=== PATIENT | male | born 1990 | race Asian ===

== ENCOUNTER 2018-07-06 08:22 | Emergency (ER) | payer OTHER ==
[~2018-07-06] VITALS: Ht 170.2 cm; Wt 75.0 kg
[2018-07-06] MEDS ORDERED: HYDROCODONE/ACETAMINOPHEN 5/325MG TABLET PO PRN (09:15)
[2018-07-06] MEDS ORDERED: ONDANSETRON HCL 4MG TABLET PO ONE (09:15)
[2018-07-06 12:52] VITALS: BP 123/69
== END 2018-07-06 13:04 | disposition home or self-care (01) ==
LOC: ER 08:40
DX: S00.83XA Contusion of other part of head, initial encounter (principal); S50.11XA Contusion of right forearm, initial encounter; V29.9XXA Motorcycle rider (driver) (passenger) injured in unspecified traffic accident, initial encounter; Y93.89 Activity, other specified; Y92.89 Other specified places as the place of occurrence of the external cause; Y99.8 Other external cause status
CPT/HCPCS: 73090; 73590; 99284; Q0162